=== PATIENT | male | born 1950 | race African-American/Black ===

== ENCOUNTER 2018-07-11 09:22 | Inpatient (IN) | payer MEDICARE, OTHER ==
[~2018-07-11] VITALS: Ht 177.8 cm; Wt 107.0 kg
[2018-07-11] MEDS ORDERED: LACTATED RINGERS 1,000 ML IV ONE (10:30)
[2018-07-11] MEDS ORDERED: HYDR25TA PO (10:50)
[2018-07-11] MEDS ORDERED: IBUP-2029 PO (10:50)
[2018-07-11] MEDS ORDERED: ENAL20TA PO (10:50)
[2018-07-11] MEDS ORDERED: BUDE6HFA IH (10:50)
[2018-07-11] MEDS ORDERED: MONT10TA24 PO (10:50)
[2018-07-11] MEDS ORDERED: BACL20TA PO (10:50)
[2018-07-11 13:02] LABS: CHLORIDE 105 mEq/L (98-107)
[2018-07-11] MEDS ORDERED: TRANEXAMIC ACID 1,000 MG in SODIUM CHLORIDE 0.9% 100 ML IV NR (13:30)
[2018-07-11] MEDS ORDERED: BUPIVACAINE/EPINEPH/PF 0.25%/0.0005 10ML ONE (14:00)
[2018-07-11] MEDS ORDERED: GENTAMICIN SULF 40MG/ML 2ML VIAL ONE (14:01)
[2018-07-11] MEDS ORDERED: MORPHINE SULFATE/PF 1MG/ML 10ML AMP ONE ×2 (14:01→14:33)
[2018-07-11] MEDS ORDERED: VANCOMYCIN HCL 500 MG/VIAL ONE ×2 (14:02→14:05)
[2018-07-11] MEDS ORDERED: BACITRACIN 15GM TUBE TOP ONE (14:02)
[2018-07-11] MEDS ORDERED: EPINEPHRINE 1:1000 1 MG/ML AMP ONE (14:02)
[2018-07-11] MEDS ORDERED: BACITRACIN 50,000 UNITS/VIAL ONE (14:03)
[2018-07-11] MEDS ORDERED: METHYLERGONOVINE MALEATE 0.2 MG/ML ONE (14:04)
[2018-07-11] MEDS ORDERED: METHYLENE BLUE 50 MG/10 ML AMP IV ONE (14:06)
[2018-07-11 14:15] LABS: CLARITY URINE CLEAR (CLEAR); COLOR URINE YELLOW (YELLOW); KETONES URINE TRACE (NEGATIVE); LEUKOCYTE ESTERASE URINE NEGATIVE (NEGATIVE); NITRITE URINE NEGATIVE (NEGATIVE); OCCULT BLOOD URINE NEGATIVE (NEGATIVE); PROTEIN URINE NEGATIVE (NEGATIVE); SPECIFIC GRAVITY URINE 1.015 (1.005-1.030)
[2018-07-11] MEDS ORDERED: MIDAZOLAM HCL 2 MG/2 ML VIAL ONE (14:36)
[2018-07-11] MEDS ORDERED: FENTANYL CITRATE/PF 50MCG/ML 2ML VIAL ONE (14:36)
[2018-07-11] MEDS ORDERED: PROPOFOL 10MG/ML 100ML 100 ML IV ONE (14:38)
[2018-07-11] MEDS ORDERED: GLYCOPYRROLATE 0.2 MG/ML 2ML VIAL ONE (15:39)
[2018-07-11] MEDS ORDERED: CEFAZOLIN SODIUM 1000MG/VIAL ONE (15:42)
[2018-07-11] MEDS ORDERED: PROPOFOL 200MG/20ML VIAL IV ONE (17:56)
[2018-07-11] MEDS ORDERED: MORPHINE SULFATE 4 MG/ML CPJ (NOT FOR IM USE) IV PRN (18:38)
[2018-07-11] MEDS ORDERED: ONDANSETRON HCL 4MG/2ML INJ IV PRN ×2 (18:40→22:14)
[2018-07-11] MEDS ORDERED: HYDROMORPHONE HCL/PF 2MG/ML CPJ IV PRN ×3 (18:40→22:13)
[2018-07-11] MEDS ORDERED: SODIUM CHLORIDE 0.9% 1,000 ML IV ONE (18:40)
[2018-07-11 20:20] VITALS: BP 140/78
[2018-07-11] MEDS ORDERED: HYDROCODONE/ACETAMINOPHEN 10/325MG TABLET PO PRN (22:11)
[2018-07-11] MEDS ORDERED: DIPHENHYDRAMINE 25MG CAPSULE PO PRN (22:14)
[2018-07-11] MEDS ORDERED: ACETAMINOPHEN 325MG TABLET PO PRN (22:14)
[2018-07-11] MEDS ORDERED: MAGNESIUM HYDROXIDE 400MG/5ML 30ML UDC PO PRN (22:14)
[2018-07-11] MEDS ORDERED: ZOLPIDEM TARTRATE 5MG TABLET PO PRN (22:14)
[2018-07-12] VITALS: BP 129/61
[2018-07-12 04:00] VITALS: BP 120/60
[2018-07-12 08:00] VITALS: BP 127/61
[2018-07-12] MEDS ORDERED: ENOXAPARIN 40MG/0.4ML SYR SUBCUT SCH (09:00)
[2018-07-12] MEDS: ENOXAPARIN 30MG/0.3ML SYR SUBCUT SCH ×2 (09:03→20:48)
[2018-07-12] MEDS: CEFAZOLIN 2,000 MG in DEXT 5% WATER 100 ML IV SCH ×2 (09:04→17:04)
[2018-07-12] MEDS: DOCUSATE SODIUM 100MG CAPSULE PO SCH ×2 (09:04→17:04)
[2018-07-12] MEDS ORDERED: POTASSIUM CHLORIDE 20MEQ TABLET SR PO SCH (11:00)
[2018-07-12 12:00] VITALS: BP 126/58
[2018-07-12 16:00] VITALS: BP 120/61
[2018-07-12 17:45] LABS: CHLORIDE 99 mEq/L (98-107)
[2018-07-12 17:54] LABS: BASOPHILS % 0.2 % (0.0-2.0); EOSINOPHILS % 0.1 % (0.0-5.0); HEMATOCRIT. 41.3 % (42.0-52.0); HEMOGLOBIN. 13.8 g/dL (14.0-18.0); LYMPHOCYTES % 10.5 % (20.0-50.0); MEAN CORPUSCULAR HEMOGLOBIN 31.9 pg (28.0-32.0); MEAN CORPUSCULAR VOLUME 95.4 fL (80.0-94.0); MEAN PLATELET VOLUME 10.6 fl (7.4-10.4); MONOCYTES % 9.8 % (2.0-8.0); NEUTROPHILS % 79.4 % (40.0-76.0); PLATELET 154 x1000/uL (130-400); RED BLOOD CELL COUNT 4.33 mill/uL (4.7-6.1); RED CELL DISTRIBUTION WIDTH 13.8 % (11.6-14.6)
[2018-07-12 20:00] VITALS: BP 143/69
[2018-07-13] VITALS (7 sets, daily range): BP systolic 104–134; BP diastolic 50–81
[2018-07-13] MEDS ORDERED: POTASSIUM CHLORIDE 20MEQ TABLET SR PO NR (09:00)
[2018-07-13] MEDS: ENOXAPARIN 30MG/0.3ML SYR SUBCUT SCH ×2 (09:12→21:10)
[2018-07-13] MEDS: DOCUSATE SODIUM 100MG CAPSULE PO SCH ×2 (09:12→17:04)
[2018-07-13] MEDS: HYDROCODONE/ACETAMINOPHEN 10/325MG TABLET PO PRN ×2 (11:09→21:12)
[2018-07-13 13:14] LABS: BASOPHILS % 0.2 % (0.0-2.0); EOSINOPHILS % 0.3 % (0.0-5.0); HEMATOCRIT. 39.5 % (42.0-52.0); HEMOGLOBIN. 13.4 g/dL (14.0-18.0); LYMPHOCYTES % 14.9 % (20.0-50.0); MEAN CORPUSCULAR HEMOGLOBIN 31.9 pg (28.0-32.0); MEAN CORPUSCULAR VOLUME 94.4 fL (80.0-94.0); MEAN PLATELET VOLUME 10.6 fl (7.4-10.4); MONOCYTES % 12.4 % (2.0-8.0); NEUTROPHILS % 72.2 % (40.0-76.0); PLATELET 145 x1000/uL (130-400); RED BLOOD CELL COUNT 4.19 mill/uL (4.7-6.1); RED CELL DISTRIBUTION WIDTH 13.6 % (11.6-14.6)
[2018-07-13 13:23] LABS: CHLORIDE 104 mEq/L (98-107)
[2018-07-14] VITALS (7 sets, daily range): BP systolic 120–149; BP diastolic 55–81
[2018-07-14] MEDS: ENOXAPARIN 30MG/0.3ML SYR SUBCUT SCH (08:26)
[2018-07-14] MEDS: DOCUSATE SODIUM 100MG CAPSULE PO SCH ×2 (08:26→16:59)
[2018-07-14] MEDS: HYDROCODONE/ACETAMINOPHEN 10/325MG TABLET PO PRN (09:55)
== END 2018-07-14 20:55 | DRG 470 ==
LOC: OR 09:22 → 6EST 09:23
PROVIDERS: ADMIT Internal Medicine; ATTEND Internal Medicine
PROC: 0SR90JA Replacement of Right Hip Joint with Synthetic Substitute, Uncemented, Open Approach (ICD-10-PCS; principal; 2018-07-11)
DX: M16.11 Unilateral primary osteoarthritis, right hip (principal); M87.851 Other osteonecrosis, right femur; E87.6 Hypokalemia; I10 Essential (primary) hypertension; J43.9 Emphysema, unspecified; Z96.652 Presence of left artificial knee joint
CPT/HCPCS: 36415; 72170; 73502; 80048; 86850; 86900; 88305; 88311; 97110; 97116; 97162; 97166; 97530; 97535; C1776; J0171; J0690; J1170; J1580; J1650; J2210; J2250; J2274; J2704; J3010; J3370; J3490; J7050; J7060; Q0163; Q9968